=== PATIENT | female | born 1930 | race Caucasian/White ===

== ENCOUNTER 2016-02-24 07:38 | Emergency (ER) | payer OTHER ==
[2016-02-24 07:42] VITALS: BMI 31.3
[2016-02-24 07:46] VITALS: BP 118/81; TEMP 96.2
--- NOTE | 2016-02-24 08:42 | DI ---
EXAM: Three views of the left ankle. History: Left ankle pain. Comparison: Left foot radiograph 02/24/2016 Findings: No acute fracture or dislocation. Hypertrophic osseous changes adjacent to the medial ma lleolus compatible with old trauma. Hypertrophic osseous changes along the lateral midfoot. Modera te sized plantar spur. Minimal enthesiopathy seen at the insertion of the Achilles tendon. Mild po lyarticular joint space narrowing. Impression: No acute osseous abnormality. Other findings as detailed above.
[2016-02-24] MEDS ORDERED: NORCO 10-325 PO STA (08:57)
--- NOTE | 2016-02-24 09:29 | DI ---
EXAM: Three views of the left wrist HISTORY: Left wrist pain. COMPARISON: None FINDINGS: There is narrowing and degenerative change of the radiocarpal joint. There is no cortical irregularity or displaced fracture identified. The carpal bones are unremarkable. Limited views o f the metacarpals are normal. Soft tissues are unremarkable. IMPRESSION: Degenerative disease of the radiocarpal joint with no acute abnormality or displaced fr acture.
--- NOTE | 2016-02-24 10:22 | ED.PDOC ---
General ED Provider: Dr. LUIS F JEROME Chief Complaint: Ankle Pain/Injury Stated Complaint: ankle , foot, and wrist pain Time Seen by Physician: 08:00 (spoke to her daughter family at bedside at all times ) Mode of Arrival: Walk-In Information Source: Patient Exam Limitations: No limitations Primary Care Provider: MARLEN GREY Nursing and Triage Documentation Reviewed and Agree: Yes Musculoskeletal Complaint Exam - Ankle/Foot Complaint/Exam Location of Injury: Reports: Left, Ankle, Foot Mechanism of Injury: Reports: No known trauma Onset/Duration: 1 day Symptoms Are: Reports: Still present Onset of Pain: Reports: Hours Initial Severity: Moderate Character: Reports: Aching Alleviating: Reports: Rest Aggravating: Reports: Movement Able to Bear Weight: Yes Associated Signs and Symptoms: Denies: Swelling, Redness, Bruising, Fever, Weakness, Numbness, Tingling Related History: Reports: Similar episode Gout Risk Factors: Reports: >40 years old, HTN Related Surgical History: Reports: None Achilles Tendon Abnormality: No Differential Diagnosis: Closed Fracture, Sprain, Strain Review of Systems - Review Of Systems Constitutional: Reports: No symptoms Eyes: Reports: No symptoms Ears, Nose, Mouth, Throat: Reports: No symptoms Respiratory: Reports: No symptoms Cardiac: Reports: No symptoms GI: Reports: No symptoms : Reports: No symptoms Musculoskeletal: Reports: Joint pain (ankle, foot wirst all left side negative trauma) Skin: Reports: No symptoms Neurological: Reports: No symptoms Endocrine: Reports: No symptoms Hematologic/Lymphatic: Reports: No symptoms All Other Systems: Reviewed and Negative Past Medical History - Past Medical History Previously Healthy: Yes Endocrine: Reports: Hypothyroid Cardiovascular: Reports: Hypertension Respiratory: Reports: None Hematological: Reports: None Gastrointestinal: Reports: GERD Genitourinary: Reports: None Neuro/Psych: Reports: None Musculoskeletal: Reports: Arthritis Cancer: Reports: None Last Menstrual Period: HYSTERECTOMY Other Pertinent Past Medical History: HYSTERECTOMY, BLADDER TACKING[End]HTN THY GERD - Surgical History General Surgical History: Reports: Hysterectomy, Other (BLADDER TACKING) - Family History Family History: Reports: Unknown - Social History Smoking Status: Never smoker Hx Substance Use: No Alcohol Screening: None Physical Exam - Physical Exam Appearance: Well-appearing, No pain distress, Well-nourished Eyes: RAMÍREZ, EOMI, Conjunctiva clear ENT: Ears normal, Nose normal, Oropharynx normal Respiratory: Airway patent, Breath sounds clear, Breath sounds equal, Respirations nonlabored Cardiovascular: RRR, Pulses normal, No rub, No murmur GI/: Soft, Nontender, No masses, Bowel sounds normal, No Organomegaly Musculoskeletal: Normal strength, ROM intact, No edema, No calf tenderness Skin: Warm, Dry, Normal color Neurological: Sensation intact, Motor intact, Reflexes intact, Cranial nerves intact, Alert, Oriented Psychiatric: Affect appropriate, Mood appropriate Interpretation - Radiology Interpretation Radiology Interpretation By: Radiologist Radiology Results: No acute changes Critical Care Note - Critical Care Note Total Time (mins): 0 Course - Course Orders, Labs, Meds: Lab Review 02/24/16 08:25 Uric Acid 4.6 Orders Category Date Time Status URIC ACID Stat LAB 02/24/16 08:25 Completed Hydrocodone Bit/Acetaminophen [Louann 10-325] MEDS 02/24/16 08:57 Discontinued 1 tab PO ONCE STA ANKLE, LEFT MIN 3 VIEWS Stat RADS 02/24/16 08:08 Completed FOOT, LEFT 3 VIEWS Stat RADS 02/24/16 08:08 Taken WRIST, LEFT 3 VIEWS Stat RADS 02/24/16 08:55 Completed Medications Discontinued Medications Generic Name Dose Route Start Last Admin Trade Name Freq PRN Reason Stop Dose Admin Acetaminophen/Hydrocodone Bitart 1 tab 02/24/16 08:57 02/24/16 09:06 Louann 10-325 PO 02/24/16 08:58 1 tab ONCE STA Administration Vital Signs: Temp Pulse Resp BP Pulse Ox 02/24/16 07:42 96.2 F L 80 20 118/81 96 Departure - Departure Time of Disposition: 10:21 (all films labs shared with family ,) Disposition: HOME SELF-CARE Discharge Problem: Ankle pain Instructions: Arthralgia (ED) Condition: Good Pt referred to PMD for follow-up: No Allergies/Adverse Reactions: Allergies Sulfa (Sulfonamide Antibiotics) Adverse Reaction (Verified 02/24/16 07:49) Home Medications: Ambulatory Orders Levothyroxine Sodium 75 mcg PO DAILY 04/12/14 Metoprolol Tartrate 25 mg PO BID 07/20/14 Omeprazole [Prilosec] 20 mg PO QDAC 11/10/14 Acetaminophen/Diphenhydramine [Tylenol Pm Ex-Strength Caplet] 1 each PO BEDTIME PRN 12/21/16 Amlodipine Besylate [Norvasc] 2.5 mg PO DAILY 02/04/16 Cyclobenzaprine HCl [Flexeril] 5 mg PO TID PRN #15 tablet 02/04/16 Docusate Sodium [Colace] 100 mg PO BID PRN #60 capsule 02/04/16 Enalapril Maleate [Vasotec] 20 mg PO DAILY 02/04/16 Hydrocodone Bit/Acetaminophen [Louann 5-325] 1 - 2 tab PO Q6HR PRN #12 tablet
--- NOTE | 2016-02-25 09:12 | DI ---
EXAM: Three radiographic images of the left foot. Reason for study: Pain. Comparison: None available. FINDINGS: There are moderate degenerative changes seen throughout the midfoot with calcaneal enthe siophytes and osteophytosis. The joint spaces are well maintained. There is a poorly marginated bon y fragment adjacent to the navicular. IMPRESSION: 1. Poorly marginated osseous fragment adjacent to the navicular bone may represent an os navicular e or an age indeterminate navicular fracture. Recommend correlation with site of pain. 2. Otherwise, no acute osseous injuries are seen. 3. Chondrocalcinosis.
== END 2016-02-24 11:05 | disposition home or self-care (01) ==
LOC: ED 07:38
DX: M25.572 Pain in left ankle and joints of left foot (principal); M25.532 Pain in left wrist; I10 Essential (primary) hypertension
CPT/HCPCS: 36415; 84550; 99283

== ENCOUNTER 2017-07-01 15:59 | Emergency (ER) | payer OTHER ==
[2017-07-01 16:07] VITALS: BP 161/105; TEMP 96.9; BMI 34.5
--- NOTE | 2017-07-01 17:39 | ED.PDOC ---
General ED Provider: Dr. LUIS F JEROME Chief Complaint: Nausea/Vomiting Stated Complaint: nausea Time Seen by Physician: 16:00 Mode of Arrival: Stretcher Information Source: Family, EMT Exam Limitations: No limitations Primary Care Provider: MARLEN GREY Nursing and Triage Documentation Reviewed and Agree: Yes Reviewed sepsis parameters & appropriate labs ordered?: Yes System Inflammatory Response Syndrome: Not Applicable Sepsis Protocol: For patient's 13 years and over: Temp is 96.8 and below OR 101 and greater Pulse >90 BPM Resp >20/minute Acutely Altered Mental Status Are patient's symptoms suggestive of a new infection, such as: -Pneumonia -Skin, Soft Tissue -Endocarditis -UTI -Bone, Joint Infection -Implantable Device -Acute Abdominal Infection -Wound Infection -Meningitis -Blood Stream Catheter Infection -Unknown System Inflammatory Response Syndrome: Not Applicable (no fall per pt's report) GI Complaint Exam - Vomiting/Diarrhea Complaint/Exam Onset/Duration: today Symptoms Are: Resolved Episodes of Vomiting over last 24 Hours: 0 Episodes of Diarrhea Over Last 24 Hours: 0 Initial Severity: Mild Current Severity: None Associated Signs and Symptoms: Denies: Dizziness, Light-headedness, Melena, Hematemesis, Fever, Abdominal pain, Cramping Abdominal Findings: Present: None Differential Diagnoses: Viral Gastroenteritis Review of Systems - Review Of Systems Constitutional: Reports: No symptoms Eyes: Reports: No symptoms Ears, Nose, Mouth, Throat: Reports: No symptoms Respiratory: Reports: No symptoms Cardiac: Reports: No symptoms GI: Reports: Nausea : Reports: No symptoms Musculoskeletal: Reports: No symptoms Skin: Reports: No symptoms Neurological: Reports: No symptoms Endocrine: Reports: No symptoms Hematologic/Lymphatic: Reports: No symptoms All Other Systems: Reviewed and Negative Past Medical History - Past Medical History Previously Healthy: Yes Endocrine: Reports: Hypothyroid Cardiovascular: Reports: Hypertension Respiratory: Reports: None Hematological: Reports: None Gastrointestinal: Reports: GERD Genitourinary: Reports: None Neuro/Psych: Reports: None Musculoskeletal: Reports: Arthritis Cancer: Reports: None Last Menstrual Period: hysterectomy Other Pertinent Past Medical History: HYSTERECTOMY, BLADDER TACKING[End]HTN THY GERD - Surgical History General Surgical History: Reports: Hysterectomy, Other (BLADDER TACKING) - Family History Family History: Reports: Unknown - Social History Smoking Status: Never smoker Hx Substance Use: No Alcohol Screening: None Physical Exam - Physical Exam Appearance: Well-appearing, No pain distress, Well-nourished Eyes: RAMÍREZ, EOMI, Conjunctiva clear ENT: Ears normal, Nose normal, Oropharynx normal Respiratory: Airway patent, Breath sounds clear, Breath sounds equal, Respirations nonlabored Cardiovascular: RRR, Pulses normal, No rub, No murmur GI/: Soft, Nontender, No masses, Bowel sounds normal, No Organomegaly Musculoskeletal: Normal strength, ROM intact, No edema, No calf tenderness Skin: Warm, Dry, Normal color Neurological: Sensation intact, Motor intact, Reflexes intact, Cranial nerves intact, Alert, Oriented Psychiatric: Affect appropriate, Mood appropriate Interpretation - [employer] Rate: Normal Rhythm: Sinus Ectopy: None - EKG Interpretation Rate: Normal Rhythm: Sinus Ectopy: None Adams: NL ST Segment: Normal (lvh) Critical Care Note - Critical Care Note Total Time (mins): 0 Course - Course Hematology/Chemistry: 07/01/17 16:13 07/01/17 16:13 Orders, Labs, Meds: Lab Review 07/01/17 07/01/17 07/01/17 16:13 16:13 16:13 WBC 5.97 RBC 3.92 L Hgb 12.8 Hct 36.9 L MCV 94.1 MCH 32.7 H MCHC 34.7 RDW Coeff of Perla 13.2 Plt Count 230 Immature Gran % (Auto) 0.3 Neut % (Auto) 77.6 Lymph % (Auto) 11.4 Lincoln % (Auto) 4.7 Eos % (Auto) 5.0 Baso % (Auto) 1.0 Immature Gran # (Auto) 0.0 Neut # (Auto) 4.6 Lymph # (Auto) 0.7 Lincoln # (Auto) 0.3 L Eos # (Auto) 0.3 Baso # (Auto) 0.1 Sodium 133 L Potassium 3.9 Chloride 101 Carbon Dioxide 23 Anion Gap 12.9 BUN 12 Creatinine 1.01 Estimated GFR (MDRD) 52.00 BUN/Creatinine Ratio 11.88 Glucose 116 H Calcium 9.0 Total Bilirubin 0.4 AST 26 ALT 19 Alkaline Phosphatase 60 Total Creatine Kinase 69 Troponin I < 0.0100 Total Protein 6.9 Albumin 3.1 L Globulin 3.8 Albumin/Globulin Ratio 0.82 Orders Category Date Time Status EKG-(ED ONLY) Stat CARDIO 07/01/17 16:02 Completed CBC W/ AUTO DIFF Stat LAB 07/01/17 16:13 Completed COMPREHENSIVE METABOLIC PANEL Stat LAB 07/01/17 16:13 Completed CREATINE KINASE Stat LAB 07/01/17 16:13 Completed TROPONIN I Stat LAB 07/01/17 16:13 Completed Vital Signs: Temp Pulse Resp BP Pulse Ox 07/01/17 16:00 96.9 F L 73 16 161/105 H 98 Departure - Departure Time of Disposition: 17:39 Disposition: HOME SELF-CARE Discharge Problem: Nausea Instructions: Acute Nausea and Vomiting in Children (ED) Condition: Good Pt referred to PMD for follow-up: Yes IPMP verified?: No Additional Instructions: Please call your Family Physician as soon as possible to schedule a follow-up appointment. Allergies/Adverse Reactions: Allergies Sulfa (Sulfonamide Antibiotics) Adverse Reaction (Verified 07/01/17 16:09) Home Medications: Ambulatory Orders Levothyroxine Sodium 75 mcg PO DAILY 04/12/14 Metoprolol Tartrate 25 mg PO DAILY 07/20/14 Omeprazole [Prilosec] 20 mg PO QDAC 11/10/14 Acetaminophen/Diphenhydramine [Tylenol Pm Ex-Strength Caplet] 1 each PO BEDTIME PRN 02/04/16 Amlodipine Besylate [Norvasc] 2.5 mg PO DAILY 02/04/16 Docusate Sodium [Colace] 100 mg PO BID PRN #60 capsule 02/04/16 Enalapril Maleate [Vasotec] 20 mg PO DAILY 02/04/16 Calcium Carb/Vitamin D3/Vit K1 [Viactiv Soft Chew Tablet] 1 each PO DAILY Folic Acid 1 mg PO DAILY 07/01/17 Methotrexate Sodium [Methotrexate] 2.5 mg PO DIRECTED 07/01/17 Nabumetone [Relafen] 500 mg PO DAILYWM 07/01/17 Disposition Discussed With: Patient
== END 2017-07-01 17:48 | disposition home or self-care (01) ==
LOC: ED 15:59
DX: R11.0 Nausea (principal); I10 Essential (primary) hypertension; E03.9 Hypothyroidism, unspecified; K21.9 Gastro-esophageal reflux disease without esophagitis; F03.90 Unspecified dementia, unspecified severity, without behavioral disturbance, psychotic disturbance, mood disturbance, and anxiety; Z79.899 Other long term (current) drug therapy; R10.9 Unspecified abdominal pain
CPT/HCPCS: 36415; 80053; 82550; 84484; 85025; 93005; 93010; 99283

== ENCOUNTER 2018-02-13 07:56 | Outpatient (CLI) | END 2018-02-13 08:04 | disposition short-term general hospital (02) | LOC: AMBL 07:56 | PROVIDERS: ATTEND Internal Medicine | DX: R06.02 Shortness of breath (principal); R47.9 Unspecified speech disturbances; C02.9 Malignant neoplasm of tongue, unspecified; R22.1 Localized swelling, mass and lump, neck; M54.2 Cervicalgia ==